=== PATIENT | male | born 1980 | race Caucasian/White ===

== ENCOUNTER → 2023-04-09 11:30 | Outpatient (BNV) | payer OTHER, SELFPAY | PROVIDERS: Visit Provider Psychiatry & Neurology Psychiatry | DX: F33.9 Major depressive disorder, recurrent, unspecified (principal); F45.42 Pain disorder with related psychological factors | CPT/HCPCS: 90792; 99213 ==

== ENCOUNTER 2023-04-27 11:30 | Outpatient (RCR) | payer OTHER, SELFPAY ==
[2023-04-07 11:51] VITALS: BP 119/88; PULSE 87; TEMP 36.8
[2023-04-07 11:53] VITALS: BMI 26.0
--- NOTE | 2023-04-07 13:09 | PC.ADMIT ---
Patient is a 42 year old male who was referred to [facility] by crisis whom he saw at [facility] after he had a discussion with his boss. He stated, Getting to the point at work starting to consider suicide as an option, its in my head. No direct plans. I overdosed on Tylenol and that sticks in my head. Started to put things in order and that's why I went to get a crisis evaluation last week. I talked to my boss who is a friend also and he contacted the clinical care manager of the ED and I spoke to crisis . Patient had been on a medical leave from work for 90 days and recently tried to go back to work and it was not working out. Patient stated the stress of working and being in pain increases the thoughts. Worried about finances if unable to work. He has been looking into long-term disability. Dx with Ankylosing Spondolytis and has arthritis of his back. Sees a Corrective Therapy Aide Teacher. Patient given written and verbal information about [employer] if needed. Patient is alert and oriented x4. Calm and cooperative. Regarding SI patient stated, No plans currently . No intent to kill himself. Patient stated the stress of working and being in pain increases the thoughts. Patient has a history of Tylenol OD in 2016. Reports inpatient is a possibility however does not feel he needs inpatient at this time. Agreed to talk to staff regarding if he needed this level of care. Patient given a copy of his safety plan if needed. He has the crisis number in his phone if needed and on the safety plan. Patient's medications reconciled with patient and patient's pharmacy. he reports taking medications as prescribed. Using Marijuana almost daily smoking 2 joints. Patient has an appointment with his outpatient psychiatric prescriber on 04/08/23 at 0930 thus will not be at [facility].
--- NOTE | 2023-04-08 17:10 | HO.PHP ---
The client's case was reviewed and opened in treatment team.
--- NOTE | 2023-04-09 09:15 | HO.PS.ADMBH ---
[facility] Date of Service: 04/09/23 Chief Complaint: MDD Sources of Information: patient interviewed, chart reviewed and crisis/core team assessment reviewed HPI Narrative: Patient is a 42 year old male with history of depression and anxiety who is referred to [facility] following crisis evaluation at [place]. He has previously attended [facility] here many years ago following a suicide attempt in 2016. 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 He began struggling with depression and anxiety since developing back pain last April 2022. He was eventually diagnosed with Ankylosing Spondylitis some months ago. He reports his mental health has continued to deteriorate through 2022 on account of his chronic pain issues becoming increasingly debilitating, and interfering with his ability to work and maintain employment. His was also recently laid off and is currently unemployed. She is trying to collect unemployment while lookig for another job. Patient says he has gone months this year without pay. He didn't have short-term disability through work so initially he wasn't paid for missing work. He was then on PFML but has now exhausted this and attempted to return to work this week but found this overwhelming and difficult to resume. He and his are starting to struggle financially and patient is worried about eventually getting evicted from their home. He says fortunately his marriage is stable. He reports low mood, low motivation, feels stuck at home not wanting to do anything, anhedonia, irritability, some hopelessness and SI that comes and goes, not constant . Pain makes it worse as well as concerns about the future (financially and medically). Suicide thoughts can get intense, last week was at an 8 or 9 out of 10. Today still thinking about it, but less wanting to be is at a 6 out 10 in intensity. He says anxiety symptoms have been manageable and not any big deal . Sleep and appetite are intact with treatment regime. No evidence of michael or psychosis. Denies any aggressive ideation or HI. Current Medications: Wellbutrin XL 150 mg qAM mirtazapine 45 gm qhs prazosin 2 mg qhs Seroquel 200 mg qhs atorvastatin 10 mg qd baclofen 10 mg TID diclofenac 50 mg TID Humira 40 mg pen IM q 2wks Had been taking Wellbutrin XL at 300 mg for the past couple of weeks but he felt was contributing to worsening SI and contacted his provider this week who returned the dose to 150 mg (as of yesterday). Past Psychiatric History: Previous suicide attempt in 2016 Had been IP for depression, with step down to [facility] when suicide attempt occurred, was medically hospitalized then transferred back to IP s/p suicide attempt, and stepped down to [facility] again Reports a history of AH in the months leading up to attempt and IPLOC in 2016, none since Also reports history of rituals, possible OCD compulsions prior to 2016, resolved Denies any history of SIB or EDB. No hx of aggression. No further psych issues from 2015 until 2022 Current Psych provider Dolores Flores at [facility] Medication trials prior to 2015, mostly SSRIs which he did not tolerate I [facility] Medical History (Updated 04/12/23 @ 06:53 by Brit Pete MD) Arthritis Hyperlipidemia Ankylosing spondylitis Narrative: Reports having a PCP and Call Center Operations Manager (both new since diagnosis) Family History: believes there is mental health issues in family, both sides, no details obtained. No FH suicides Social History: Grew up in [place] with both parents, he is estranged from. 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 Possible alcohol abuse in his 20s w excessive drinking until intoxicated, hx of black-outs Cannabis use: almost daily, hx of on/off use since his teens. No paranoia or associated side effects Hallucinogen, others: none Cocaine use: none Denies other illicit subtance use. No IVDA Nicotine use: 1 ppd x years, interested in getting on patch (has used them in the past) Caffeine: ~ 1 unit/daily, helps with energy Trauma History: Denies Diagnostics Vital Signs (24Hr): BMI result Body Mass Index 26.0 Meds/Allergies Meds Home Medications Medication Instructions Recorded Confirmed Type adalimumab 40 mg/0.4 mL 40 mg subcut Q2W 04/07/23 04/07/23 History subcutaneous pen kit (Humira(CF) Pen) atorvastatin 10 mg tablet 10 mg PO DAILY 04/07/23 04/07/23 History baclofen 10 mg tablet 10 mg PO TID 04/07/23 04/07/23 History diclofenac sodium 50 mg 50 mg PO TID 04/07/23 04/07/23 History tablet,delayed release mirtazapine 45 mg tablet 45 mg PO BEDTIME 04/07/23 04/07/23 History prazosin 1 mg capsule 2 mg PO BEDTIME 04/07/23 04/07/23 History quetiapine 200 mg tablet 200 mg PO BEDTIME 04/07/23 04/07/23 History Wellbutrin XL 1 tab PO QAM 04/09/23 04/09/23 History Allergies Allergies Allergy/AdvReac Type Severity Reaction Status Date / Time Sulfa (Sulfonamide Allergy Unknown UNKNOWN Unverified 02/08/20 16:58 Antibiotics) [SULFA (SULFONAMIDE ANTIBIOTICS)] Mental Status Exam Mental Status Exam Narrative: Alert and oriented, in no acute distress. Kyphosis, sallow complexion. Calm, cooperative but guarded. Intermittent eye contact. Speech normal. No evidence of pressured or delayed speech. Mood anxious. Affect constricted, appropriate but more isrrael in responses as interview continued, slight irritable edge. Denies any SI or HI. No paranoia or psychosis. Cognition intact. Insight fair but adequate. Judgment intact. Assessment & Plan Assessment & Plan (1) Major depressive disorder, recurrent episode: Status: Acute Qualifiers: Major depression episode severity: unspecified Qualified Code(s): F33.9 - Major depressive disorder, recurrent, unspecified Code(s): F33.9 - Major depressive disorder, recurrent, unspecified (2) Pain disorder associated with psychological factors and medical condition: Status: Acute Code(s): F45.42 - Pain disorder with related psychological factors Assessment and Plan: Mirtazapine is at maximum of 45 mg/d and he is unable to tolerate further increase in Wellbutrin due to adverse effects, I suggested augmentation with an SNRI, possibly duloxetine, as an adjunct to target pain as well as depression, anxiety. Patient was reticent, but gave no clear reasons. He was generally reluctant to talk further and apparently was having some trouble attending to the conversation as time went by. I asked if he was having any pain or discomfort from sitting to long, but he dismissed this. He was encouraged to consider this and that we could continue the conversation next week. Plan Admit to [facility] We discussed current medication regime, patient would benefit from increase/augmentation in antidepressant treatment No changes made to his medication regime at this time, per patient preference Patient with passive SI, transient. Denies any urge, intention or plan to harm self. Denies HI. No michael or psychosis. Self care is fair. Does not meet criteria for IPLOC at this time. Continue to monitor Patient educated on: diagnosis, medication risk/benefits and medical condition Informed Consent: understands Reason for continued partial hosp. stay Substantial Risk for: inability to function, rapid decompensation and med/psych decompensation Certification I certify that partial hospital treatment is medically necessary due to the symptoms and problems resulting from the patient's mental illness and the failure to treat the patient at the partial hospital level of care would likely result in the patient requiring inpatient psychiatric care which could not be prevented at a less intensive level of care. Time Spent With Patient Time: Total time managing care of this patient today __60__ minutes.
--- NOTE | 2023-04-12 10:01 | PC.NURSE ---
Eric came to my office this morning and stated he had stomach pains and vomited over the weekend and stated he thinks it was the new medication for his back (Baclofen). He stated he did not take it after that and GI issues have resolved. He is interested in going to a pain clinic and discussed that I call his PCP and set up a referral. He also interested in another medication for his back pain. He stated he did not do much this weekend. He does feel better when he goes for a walk however it is difficult with pain issues. He stated his pain is anywhere from 4-10 (10 being the most pain) depending on the day. He also stated he sleeps in a recliner which helps with the pain. He presented with depressed mood and affect. He reports SI stating, I have fantasies , however denied any plan or intent to kill himself. He is trying to process that he can not work d/t his medical condition. I also spoke to him about support groups at [facility] [place] however did not seem interested at this time. Also discussed talking with his PCP about SSDI. He did state he wants to meet with the PHP provider today. He stated he really did not want to come to the program however his encouraged him to attend today. I spoke to Ame from the office of his PCP Amanda MCMAHON regarding patient wanting me to call them regarding his interest in pain clinic referral, New muscle relaxer medicaton as he had an adverse reaction to Baclofen, and SSDI.They stated they would contact the patient regarding the above.
--- NOTE | 2023-04-12 20:49 | HO.PHPPROGNO ---
Subjective Subjective Date of Service: 04/12/23 Reason For Visit: MDD Interim History: Not great . Eric reports his weekend did not go well. He didnt tolerate baclofen, was taking 3 times a day, started on Wednesday, caused nausea, abdominal pain, after 3 rd dose in evening Wednesday he was vomiting later in the night and into the next day. Vomiting abated by Sat afternoon. Denies any sick contacts. He did not take any further doses after Wednesday night. This is reportedly the 2nd failed muscle relaxer. Had previously been prescribed cyclobenzaprine which was ineffective. He was reminded to call his PCP to check discuss disability ppwrk as well as requesting a referral to pain clinic and now to inform them about not tolerating the baclofen. RN Yaa says she can help him with this. Mood is still low, denies any current SI, mostly having a lot of hopelessness but not wanting to end things . We discussed that there is no room to further optimize either of his current antidepressants mirtazapine is at higher dose range at 45 mg, and pt couldnt tolerate increase of WB XL to 300 mg. He is agreeable to starting duloxetine, will titrate slowly, starting at 20 mg qd and incr to BID over the week. Medication Compliance: Yes Side effects from medications: Yes (as noted above) Attending Groups: Yes Review of Systems Acute medical concerns: Yes baclofen poor tolerated, contacted PCP to make appointment for follow up Mental Status Exam Mental Status Exam Narrative: Alert and oriented, in no acute distress. Kyphosis, sallow complexion. Restless with occasional shifting in chair due to discomfort. Cooperative but guarded. Intermittent eye contact. Speech normal. No evidence of pressured or delayed speech. Mood anxious. Affect constricted, appropriate but more isrrael in responses as interview continued, slight irritable edge. Thought process linear, coherent. Thought content relevant to stressors, anhedonia, and hopelessness, denies any SI or HI. No paranoia or psychosis. Cognition intact. Insight fair but adequate. Judgment intact. Patient Behavior: Self Manipulative Diagnostics Vital Signs (24Hr): BMI result Body Mass Index 26.0 Assessment & Plan Assessment & Plan (1) Major depressive disorder, recurrent episode: Qualifiers: Major depression episode severity: unspecified Qualified Code(s): F33.9 - Major depressive disorder, recurrent, unspecified Status: Acute Code(s): F33.9 - Major depressive disorder, recurrent, unspecified (2) Pain disorder associated with psychological factors and medical condition: Status: Acute Code(s): F45.42 - Pain disorder with related psychological factors Plan start duloxetine 20 mg qd for a few days, will increase to BID as tolerated continue other medications pending PCP appointment to f/u re: muscle relaxer. referral pain clinic plans to start SSDI paperwork online continue PHP Patient educated on: diagnosis and medication risk/benefits Informed Consent: understands Reason for contiued partial hosp. stay Substantial Risk for: inability to function, rapid decompensation and med/psych decompensation Certification I certify that partial hospital treatment is medically necessary due to the symptoms and problems resulting from the patient's mental illness and the failure to treat the patient at the partial hospital level of care would likely result in the patient requiring inpatient psychiatric care which could not be prevented at a less intensive level of care. Total time managing care of this patient today __30__ minutes. Discharge Plan Discharge Attending provider: Brit Pete Medications: New nicotine 21 mg/24 hr patch 24 hour 1 patch transdermal DAILY Qty: 14 0RF Rx Instructions: Remove patch in the evening nicotine 14 mg/24 hr patch 24 hour 1 patch transdermal DAILY Qty: 14 0RF Rx Instructions: once completed with 14 days of 21 mg patches; remove patch in the evening nicotine 7 mg/24 hr patch 24 hour 1 patch transdermal Q24H Qty: 14 0RF Rx Instructions: once completed with 14 days of 14 mg patches; remove patch in the evening duloxetine 20 mg capsule,delayed release(DR/EC) 20 mg PO BID Qty: 20 0RF Rx Instructions: take one capsule po daily for 2-4 days, then increase to one capsule po twice daily Continued atorvastatin 10 mg tablet 10 mg PO DAILY prazosin 1 mg capsule 2 mg PO BEDTIME quetiapine 200 mg tablet 200 mg PO BEDTIME baclofen 10 mg tablet 10 mg PO TID mirtazapine 45 mg tablet 45 mg PO BEDTIME diclofenac sodium 50 mg tablet,delayed release (DR/EC) 50 mg PO TID Humira(CF) Pen 40 mg/0.4 mL pen injector kit 40 mg subcut Q2W Wellbutrin XL 150 mg tablet 1 tab PO QAM Discontinued bupropion HCl 300 mg tablet extended release 24 hr 300 mg PO DAILY Patient Comments: Patient reports he has an appointment with his prescriber 04/08/23 at 0930 to review potential side effects. Patient questioning if contributing to suicidal thoughts?. bupropion HCl tablet 150 tab PO QAM Telehealth Telehealth Location of provider rendering services: other (private office) Location of patient: other ([facility] Patient Identification confirmed using: Name, : Yes Telehealth method: video Patient verbally consented to treatment: Yes Minutes spent on Phone/Video with Pt.: 30
--- NOTE | 2023-04-19 20:34 | P.PNPSP_ITS ---
Subjective Subjective Date of Service: 04/19/23 Reason For Visit: MDD Interim History: Patient seen for follow-up today. No acute issues or concerns. Uneventful weekend. He and went hiking, was cold but enjoyable. Walking makes him tired, so he's feeling it now . Started on new medication (duloxetine) last Wed or , had one day of N/V/D which resolved over the passing 24 hrs. No further side effects, has been med compliant. Sleep is variable so not getting as much restorative sleep as he would like. He has PCP appointment next WednesdayApr 26 and will be discussing Disability ppwk and referral for pain clinic. Mood is a little better, says he's not having as many issues today and has been sticking it out in groups and trying to participate more. Denies any thoughts of giving up on life. Medication Compliance: Yes Side effects from medications: No Attending Groups: Yes Review of Systems Acute medical concerns: No Mental Status Exam Mental Status Exam Narrative: Alert and oriented, in no acute distress. Cooperative less guarded. Improved eye contact. Speech normal. No evidence of pressured or delayed speech. Mood anxious. Affect constricted, appropriate but more isrrael in responses as interview continued, slight irritable edge. Thought process linear, coherent. Thought content relevant to stressors, denies any SI or HI. No paranoia or psychosis. Cognition intact. Insight fair but adequate. Judgment intact. Diagnostics Vital Signs (24Hr): BMI result Body Mass Index 26.0 Assessment & Plan Assessment & Plan (1) Major depressive disorder, recurrent episode: Qualifiers: Major depression episode severity: unspecified Qualified Code(s): F33.9 - Major depressive disorder, recurrent, unspecified Status: Acute Code(s): F33.9 - Major depressive disorder, recurrent, unspecified (2) Pain disorder associated with psychological factors and medical condition: Status: Acute Code(s): F45.42 - Pain disorder with related psychological factors Plan continue in PHP increase duloxetine 20 mg to BID continue to monitor Patient educated on: diagnosis and medication risk/benefits Informed Consent: understands Reason for contiued partial hosp. stay Substantial Risk for: inability to function, rapid decompensation and med/psych decompensation Certification I certify that partial hospital treatment is medically necessary due to the symptoms and problems resulting from the patient's mental illness and the failure to treat the patient at the partial hospital level of care would likely result in the patient requiring inpatient psychiatric care which could not be prevented at a less intensive level of care. Total time managing care of this patient today _30___ minutes. Discharge Plan Discharge Attending provider: Brit Pete Medications: New nicotine 21 mg/24 hr patch 24 hour 1 patch transdermal DAILY Qty: 14 0RF Rx Instructions: Remove patch in the evening nicotine 14 mg/24 hr patch 24 hour 1 patch transdermal DAILY Qty: 14 0RF Rx Instructions: once completed with 14 days of 21 mg patches; remove patch in the evening nicotine 7 mg/24 hr patch 24 hour 1 patch transdermal Q24H Qty: 14 0RF Rx Instructions: once completed with 14 days of 14 mg patches; remove patch in the evening duloxetine 20 mg capsule,delayed release(DR/EC) 20 mg PO BID Qty: 20 0RF Rx Instructions: take one capsule po daily for 2-4 days, then increase to one capsule po twice daily Continued atorvastatin 10 mg tablet 10 mg PO DAILY prazosin 1 mg capsule 2 mg PO BEDTIME quetiapine 200 mg tablet 200 mg PO BEDTIME baclofen 10 mg tablet 10 mg PO TID mirtazapine 45 mg tablet 45 mg PO BEDTIME diclofenac sodium 50 mg tablet,delayed release (DR/EC) 50 mg PO TID Humira(CF) Pen 40 mg/0.4 mL pen injector kit 40 mg subcut Q2W Wellbutrin XL 150 mg tablet 1 tab PO QAM Discontinued bupropion HCl 300 mg tablet extended release 24 hr 300 mg PO DAILY Patient Comments: Patient reports he has an appointment with his prescriber 04/08/23 at 0930 to review potential side effects. Patient questioning if contributing to suicidal thoughts?. bupropion HCl tablet 150 tab PO QAM Telehealth Telehealth Location of provider rendering services: other (private office) Location of patient: other ([facility]) Patient Identification confirmed using: Name, : Yes Telehealth method: video Patient verbally consented to treatment: Yes
--- NOTE | 2023-04-20 17:26 | HO.PHP ---
Cloth Desizing Range Operator Chief spoke with [facility] to inquire of therapy referral for pt at the [facility] location, per pt request (pt resides in [place] and provider located in that office). [facility] staff member stated pt needs to call or go to the program in person and enroll for services himself, states they are filling appt on a first come first served basis. Cloth Desizing Range Operator Chief called pt to inform him of this and to encourage pt go in person after programming today or tomorrow if possible. Cloth Desizing Range Operator Chief left a voicemail.
[2023-04-21 10:39] VITALS: BP 128/78; PULSE 68; TEMP 36.5
[2023-04-21 10:42] VITALS: BMI 31.0
--- NOTE | 2023-04-22 08:36 | PC.NURSE ---
Eric has a doctors appointment on Wednesday to go over disability paperwork regarding work and SSDI. Also to discuss referral to pain clinic. Eric called out of the program today as he c/o diarrhea with second dose of Duloxetine, will f/u with Dr Pete.
--- NOTE | 2023-04-23 21:24 | P.PNPSP_ITS ---
Subjective Subjective Date of Service: 04/23/23 Reason For Visit: MDD Interim History: Patient seen for follow-up. No acute issues or concerns. Patient is day 2 on BID dosing of duloxetine. He reports experiencing stomach cramps today, which is an improvement from yesterday when he had stomach cramping and diarrhea, and was unable to come to the program. Last week he had N/V/D when starting on duloxetine, which lasted 2-3 days and then resolved, until bumping up the dose the other day. He feels it is lightening up and is optimistic these symtoms will resolve by tomorrow. He reports his mood is okay. He reports mood stability at a 6 out of 10, which is an improvement since being at a 2 out of 10 at the start of the program. He denies any thoughts of giving up on life in the past few days, and feels some modest improvements. No helplessness, hopelessness or SI. SLeep and appetite are intact. He denies any alcohol use, he uses weed occasionally for anxiety and pain. He continues to work out some problems in groups, reportedly has been helpful vocalizing his concerns/distress/feelings rather than internalizing his problems. Medication Compliance: Yes Side effects from medications: Yes (as noted above) Attending Groups: Yes Review of Systems Acute medical concerns: No Mental Status Exam Mental Status Exam Narrative: Patient Appearance: Appropriate Level of Consciousness: Awake and Alert Patient Behavior: Appropriate and Cooperative Mood Description: Depressed Affect Description: Calm Ability to Follow Directions: Excellent Speech Pattern: Appropriate and Spontaneous Speech Memory Description: Remote Impaired and Normal for Patient Hallucinations: None Delusions: Not Present Thought Process: Linear Thought Content: positive for Linear and positive for Poverty of Content Depressive Symptoms: Increased Anxiety, Diff. Making Decisions, Muscle Tension, Difficulty Sleeping, Loss of Int. in Activity, Increased Fatigue, Low Self Esteem and Difficulty Concentrating Judgement: Good Judgement and Insight: fair/adequate Diagnostics Vital Signs (24Hr): BMI result Body Mass Index 31.0 Assessment & Plan Assessment & Plan (1) Major depressive disorder, recurrent episode: Qualifiers: Major depression episode severity: unspecified Qualified Code(s): F33.9 - Major depressive disorder, recurrent, unspecified Status: Acute Code(s): F33.9 - Major depressive disorder, recurrent, unspecified (2) Pain disorder associated with psychological factors and medical condition: Status: Acute Code(s): F45.42 - Pain disorder with related psychological factors Plan For now will continue with duloxetine 20 mg BID, will plan to continue gradual titration and allow time for patient to adjust to medication given propensity to cause GI problems continue in [facility] Patient educated on: diagnosis and medication risk/benefits Informed Consent: understands Reason for contiued partial hosp. stay Substantial Risk for: med/psych decompensation Certification I certify that partial hospital treatment is medically necessary due to the symptoms and problems resulting from the patient's mental illness and the fa ilure to treat the patient at the partial hospital level of care would likely result in the patient requiring inpatient psychiatric care which could not be prevented at a less intensive level of care. Total time managing care of this patient today __30__ minutes. Discharge Plan Discharge Attending provider: Brit Pete Medications: New nicotine 21 mg/24 hr patch 24 hour 1 patch transdermal DAILY Qty: 14 0RF Rx Instructions: Remove patch in the evening nicotine 14 mg/24 hr patch 24 hour 1 patch transdermal DAILY Qty: 14 0RF Rx Instructions: once completed with 14 days of 21 mg patches; remove patch in the evening nicotine 7 mg/24 hr patch 24 hour 1 patch transdermal Q24H Qty: 14 0RF Rx Instructions: once completed with 14 days of 14 mg patches; remove patch in the evening Continued atorvastatin 10 mg tablet 10 mg PO DAILY prazosin 1 mg capsule 2 mg PO BEDTIME quetiapine 200 mg tablet 200 mg PO BEDTIME baclofen 10 mg tablet 10 mg PO TID mirtazapine 45 mg tablet 45 mg PO BEDTIME diclofenac sodium 50 mg tablet,delayed release (DR/EC) 50 mg PO TID Humira(CF) Pen 40 mg/0.4 mL pen injector kit 40 mg subcut Q2W Wellbutrin XL 150 mg tablet 1 tab PO QAM duloxetine 20 mg capsule,delayed release(DR/EC) 20 mg PO BID Qty: 30 0RF Rx Instructions: take one capsule po daily for 2-4 days, then increase to one capsule po twice daily Discontinued bupropion HCl 300 mg tablet extended release 24 hr 300 mg PO DAILY Patient Comments: Patient reports he has an appointment with his prescriber 04/08/23 at 0930 to review potential side effects. Patient questioning if contributing to suicidal thoughts?. bupropion HCl tablet 150 tab PO QAM Stand Alone Forms: Patient Portal Discharge page
--- NOTE | 2023-04-27 11:52 | P.PNPSP_ITS ---
Subjective Subjective Date of Service: 04/27/23 Reason For Visit: MDD Interim History: Patient seen for follow-up today. He will be discharged as per dispo plan. No acute issues or concerns. He reports doing better. Says his mood is still with some depression, but this has improved over his stay. He is tolerating the duloxetine which is currently at 20 mg BID. He had some GI complaints with starting the medication (stomach cramps/N/V/D) and milder symptoms (cramping/D) when titrated to BID. He had had a history of sensitivity to ADT this we planned for a long titration. Vira is aware the goal is to get to 30 mg BID and then stay at that dose for 4-6 weeks, at which time his provider and he can decide if further titratiion is warranted. CUrrently he denies any thougths of giving up on life. Last passive SI was over a week ago. He is feeling more positive and reports th at his financial siutation is not as desperate as it was before. His has since started a new job. He had an appointment with his PCP last week and has started the long-term disability paperwork. He forgot to request a referral to a pain clinic, as we had recommended and says he will ask about that next time, or sooner if pain issues worsen. He reports having an upcoming psych appointment with Dolores Kaur NP on May 06. Is waiting to get a therapist soon. Sleep and appetite intact. Energy still kind of low, limited by pain but no changes and now worse. Medication compliant. Denies anyAE. Medication Compliance: Yes Side effects from medications: No Attending Groups: Yes Review of Systems Acute medical concerns: No Mental Status Exam Mental Status Exam Narrative: Patient Appearance: Appropriate Level of Consciousness: Awake and Alert Patient Behavior: Appropriate and Cooperative Mood Description: less Depressed Affect Description: Calm, subdued Ability to Follow Directions: Excellent Speech Pattern: Appropriate and Spontaneous Speech Memory Description: Remote Impaired and Normal for Patient Hallucinations: None Delusions: Not Present Thought Process: Linear, coherent Thought Content: future oriented, more hopeful, No SI or hI on inquiry Depressive Symptoms: Increased Anxiety, Diff. Making Decisions, Muscle Tension, Difficulty Sleeping, Loss of Int. in Activity, Increased Fatigue, Low Self Esteem and Difficulty Concentrating Judgment and Insight: good/fair Diagnostics Vital Signs (24Hr): BMI result Body Mass Index 31.0 Assessment & Plan Assessment & Plan (1) Major depressive disorder, recurrent episode: Qualifiers: Major depression episode severity: unspecified Qualified Code(s): F33.9 - Major depressive disorder, recurrent, unspecified Status: Acute Code(s): F33.9 - Major depressive disorder, recurrent, unspecified (2) Pain disorder associated with psychological factors and medical condition: Status: Acute Code(s): F45.42 - Pain disorder with related psychological factors Plan Discharge from [facility] continue regular medications will defer ongoing medication management to outpatient provider patient aware he will be due for further titration of duloxetine to 30 mg BID, ideally in the next week Patient educated on: diagnosis and medication risk/benefits Informed Consent: understands Reason for contiued partial hosp. stay Substantial Risk for: stable for discharge Certification I certify that partial hospital treatment is medically necessary due to the symptoms and problems resulting from the patient's mental illness and the failure to treat the patient at the partial hospital level of care would likely result in the patient requiring inpatient psychiatric care which could not be prevented at a less intensive level of care. Total time managing care of this patient today ___30_ minutes. Discharge Plan Discharge Attending provider: Brit Pete Medications: New nicotine 21 mg/24 hr patch 24 hour 1 patch transdermal DAILY Qty: 14 0RF Rx Instructions: Remove patch in the evening nicotine 14 mg/24 hr patch 24 hour 1 patch transdermal DAILY Qty: 14 0RF Rx Instructions: once completed with 14 days of 21 mg patches; remove patch in the evening nicotine 7 mg/24 hr patch 24 hour 1 patch transdermal Q24H Qty: 14 0RF Rx Instructions: once completed with 14 days of 14 mg patches; remove patch in the evening Continued atorvastatin 10 mg tablet 10 mg PO DAILY prazosin 1 mg capsule 2 mg PO BEDTIME quetiapine 200 mg tablet 200 mg PO BEDTIME baclofen 10 mg tablet 10 mg PO TID mirtazapine 45 mg tablet 45 mg PO BEDTIME diclofenac sodium 50 mg tablet,delayed release (DR/EC) 50 mg PO TID Humira(CF) Pen 40 mg/0.4 mL pen injector kit 40 mg subcut Q2W Wellbutrin XL 150 mg tablet 1 tab PO QAM duloxetine 20 mg capsule,delayed release(DR/EC) 20 mg PO BID 30 Days Qty: 60 0RF Rx Instructions: take one capsule po daily for 2-4 days, then increase to one capsule po twice daily Discontinued bupropion HCl 300 mg tablet extended release 24 hr 300 mg PO DAILY Patient Comments: Patient reports he has an appointment with his prescriber 04/08/23 at 0930 to review potential side effects. Patient questioning if contributing to suicidal thoughts?. bupropion HCl tablet 150 tab PO QAM Stand Alone Forms: Patient Portal Discharge page Patient Education: Depression (DC)
--- NOTE | 2023-04-27 19:42 | HO.PHPPROGNO ---
Subjective Subjective Date of Service: 04/27/23 Reason For Visit: MDD Diagnostics Vital Signs (24Hr): BMI result Body Mass Index 31.0 Assessment & Plan Certification I certify that partial hospital treatment is medically necessary due to the symptoms and problems resulting from the patient's mental illness and the failure to treat the patient at the partial hospital level of care would likely result in the patient requiring inpatient psychiatric care which could not be prevented at a less intensive level of care. Total time managing care of this patient today ____ minutes. Discharge Plan Discharge Attending provider: Brit Pete Medications: New nicotine 21 mg/24 hr patch 24 hour 1 patch transdermal DAILY Qty: 14 0RF Rx Instructions: Remove patch in the evening nicotine 14 mg/24 hr patch 24 hour 1 patch transdermal DAILY Qty: 14 0RF Rx Instructions: once completed with 14 days of 21 mg patches; remove patch in the evening nicotine 7 mg/24 hr patch 24 hour 1 patch transdermal Q24H Qty: 14 0RF Rx Instructions: once completed with 14 days of 14 mg patches; remove patch in the evening Continued atorvastatin 10 mg tablet 10 mg PO DAILY prazosin 1 mg capsule 2 mg PO BEDTIME quetiapine 200 mg tablet 200 mg PO BEDTIME baclofen 10 mg tablet 10 mg PO TID mirtazapine 45 mg tablet 45 mg PO BEDTIME diclofenac sodium 50 mg tablet,delayed release (DR/EC) 50 mg PO TID Humira(CF) Pen 40 mg/0.4 mL pen injector kit 40 mg subcut Q2W Wellbutrin XL 150 mg tablet 1 tab PO QAM duloxetine 20 mg capsule,delayed release(DR/EC) 20 mg PO BID 30 Days Qty: 60 0RF Rx Instructions: take one capsule po daily for 2-4 days, then increase to one capsule po twice daily Discontinued bupropion HCl 300 mg tablet extended release 24 hr 300 mg PO DAILY Patient Comments: Patient reports he has an appointment with his prescriber 04/08/23 at 0930 to review potential side effects. Patient questioning if contributing to suicidal thoughts?. bupropion HCl tablet 150 tab PO QAM Stand Alone Forms: Patient Portal Discharge page Patient Education: Depression (DC)
== END 2023-04-27 23:59 | disposition home or self-care (01) ==
LOC: HO.PHPA 11:30
PROVIDERS: Visit Provider Psychiatry & Neurology Psychiatry
DX: F33.9 Major depressive disorder, recurrent, unspecified (principal); F45.42 Pain disorder with related psychological factors; Z79.899 Other long term (current) drug therapy
CPT/HCPCS: 90791; 90853

== ENCOUNTER 2025-01-03 14:15 | Outpatient (RCR) | payer OTHER, SELFPAY ==
[2024-12-28 10:43] VITALS: BP 102/68; PULSE 72; TEMP 36.8
--- NOTE | 2024-12-28 11:14 | PC.ADMIT ---
Patient is a 44 year old male who was referred to [facility] by [facility] where he was admitted from 12/13-12/18/24 after self presenting to the ED with his d/t sxs of depression with SI with a plan to overdose on Tylenol secondary to life stresses and chronic pain x 3 years. Patient has a dx of Ankylosing Spondylitis, psoriatic arthritis. Patient has a history of multiple hospitalizations. Patient reports since the last time he was at [facility] he lost his job, [employer], his lost her job- currently is working), lost his apartment, and he lost his insurance and all his providers as a result. Patient reports that he has insurance currently and is living with in his parents in law apartment. Patient stated his and parents are supportive. Patient reports a history of overdosing on Tylenol 10 years ago. He reports he was in ICU for a week prior to going inpatient LOC. Patient is currently alert and oriented x4. He is calm and cooperative. He presented with depressed mood and anxious affect. Patient reports passive SI having thoughts that he would be better off. He stated he always has thoughts to overdose on Tylenol since he overdosed 10 years ago on Tylenol however her reports the plan is not active and does not have any intent to kill himself. Patient stated, 'Ultimately I don't want that to be the answer. Patient was given a copy of his safety plan if needed. Medications updated with patient and patient's d/c medication list from [facility]. Patient stated [facility] gave him a 7 day supply of his medications when discharged and ran out of medications 2 days ago. He stated he had a intake appointment for outpatient therapy and psychiatry at [facility] in [place] on Wednesday12/24/24 and when he went to the appointment they were closed, no one answered the door and the door was locked. Patient stated he needs a therapist and psychiatrist.
[2024-12-28 12:50] VITALS: BMI 25.0
--- NOTE | 2024-12-28 17:21 | HO.PHP ---
Clients case was open and reviewed in teams.
--- NOTE | 2025-01-01 22:39 | HO.PHPPROGNO ---
Subjective Subjective Date of Service: 01/01/25 Reason For Visit: MDD Interim History: Patient seen for follow-up. Ambulating now with walker. Has experienced some relief from medication, affords him more ability to engage with others and work on tasks. However once wears off, especially by the afternoon, pain and anxiety return and is debilitating . He denies any sedation or side effects from medication. He is open to increasing dose to help with pain, anxiety. Mood still depressed, denies any SI. Feeling transient demoralized and helpess. Medication Compliance: Yes Side effects from medications: No Attending Groups: Yes Review of Systems Acute medical concerns: No Mental Status Exam Mental Status Exam Narrative: Patient Appearance: Appropriate Level of Consciousness: Awake and Alert Patient Behavior: Appropriate and Cooperative Mood Description: Depressed Affect Description: Calm, subdued Ability to Follow Directions: Excellent Speech Pattern: Appropriate and Spontaneous Speech Memory Description: Remote Impaired and Normal for Patient Hallucinations: None Delusions: Not Present Thought Process: Linear, coherent Thought Content: future oriented, more hopeful, No SI or hI on inquiry Depressive Symptoms: Increased Anxiety, Diff. Making Decisions, Muscle Tension, Difficulty Sleeping, Loss of Int. in Activity, Increased Fatigue, Low Self Esteem and Difficulty Concentrating Judgment and Insight: good/fair Diagnostics Vital Signs (24Hr): BMI result Body Mass Index 25.0 Assessment & Plan Assessment & Plan (1) Major depressive disorder, recurrent episode: Qualifiers: Major depression episode severity: unspecified Qualified Code(s): F33.9 - Major depressive disorder, recurrent, unspecified Status: Acute Code(s): F33.9 - Major depressive disorder, recurrent, unspecified (2) Pain disorder associated with psychological factors and medical condition: Status: Acute Code(s): F45.42 - Pain disorder with related psychological factors Plan continue PHP increase gabapentin to 300 mg QID increase baclofen to 10 mg QID continue hydroxyzine 50 mg BID PRN anxiety, sleep continue clonazepam 0.5 mg BID (AM/HS) continue mirtazapine 45 mg qhs continue prazosin 1 mg qhs hold off trazodone (since gbt at HS now) Patient educated on: diagnosis, medication risk/benefits and medical condition Informed Consent: understands Reason for contiued partial hosp. stay Substantial Risk for: inability to function and med/psych decompensation Certification I certify that partial hospital treatment is medically necessary due to the symptoms and problems resulting from the patient's mental illness and the failure to treat the patient at the partial hospital level of care would likely result in the patient requiring inpatient psychiatric care which could not be prevented at a less intensive level of care. Total time managing care of this patient today __30__ minutes. Discharge Plan Discharge Attending provider: Brit Pete Medications: New baclofen 10 mg tablet 10 mg PO BID Qty: 30 0RF gabapentin 300 mg capsule 300 mg PO TID Qty: 30 0RF clonazepam [Klonopin] 0.5 mg tablet 0.5 mg PO BID Qty: 20 0RF baclofen 10 mg tablet 10 mg PO QID Qty: 60 0RF Continued trazodone 50 mg tablet 50 mg PO BEDTIME PRN (Reason: insomnia) Qty: 30 0RF prazosin 1 mg capsule 1 mg PO BEDTIME Qty: 30 0RF hydroxyzine pamoate 50 mg capsule 50 mg PO TID PRN (Reason: Anxiety) Qty: 30 0RF Rx Instructions: TAKE 1 CAPSULE BY MOUTH 3 TIMES DAILY. mirtazapine 45 mg tablet 45 mg PO BEDTIME Qty: 30 0RF Rx Instructions: TAKE 1 TABLET BY MOUTH EVERY DAY AT BEDTIME No Action lidocaine 4 % Adhesive Patch,Medicated 1 patch TOPICAL DAILY PRN (Reason: Pain) Stand Alone Forms: Patient Portal Discharge page Print Language: Arabic
--- NOTE | 2025-01-02 10:51 | HO.PHP ---
[facility] staff member reached out to [facility] on multiple occasions to make a referral but there phone lines were having difficulties and kept disconnecting. [facility] staff member spoke with someone through the [facility], [facility], who expressed that Eric can come in for a walk in appointment from 8 AM to 8 PM Wednesday Through Wednesday and 9 to 5 PM Wednesday and Wednesday. They noted that Eric would have to meet with a therapist there prior to being assigned a med provider but they do prioritize hospital discharges. Eric was provided with the walk in information and encouraged to call ahead of time to see if the time he would like to go is available. The number provided is .
--- NOTE | 2025-01-02 15:07 | HO.PHP ---
[facility] staff member met with Eric due to Marah stating he was crying in her group (Group 2). PHP staff member explored with Eric what was occurring. Eric expressed that he is feeling defeated and hopeless. Eric shared how he often will think about what his life has to offer and it is challenging for him to see anything positive due to the pain and his mental health. PHP staff member encouraged Eric when he begins thinking into the future and it creates distress to pull himself back into the present time and work on what is in his control. Eric appeared receptive. Eric also shared that he feels he does not contribute anything in his relationship. PHP staff member stated that he feels that way and asked if he has explored this with his . Eric says he has and she is able to state a list of how he contributes he just doesn't believe it. PHP staff member and Eric engaged in conversation around how he has engaged in negative self-talk for so long that it is impacting how he views himself now. PHP staff member encouraged him to implement affirmation activities to improve self-esteem and also to reframe his way of thinking. Eric was in agreement. Eric was able to regulate and return to the group setting. Eric also reported no safety concerns.
--- NOTE | 2025-01-03 10:15 | HO.PHP ---
01/03/2025 This comic book writer was asked to meet with the patient,Eric, this morning because he was stating that he was struggling. This comic book writer met with the patient in group room C,he reported to this comic book writer that he did not feel well physically because he was sick last night at home and did not sleep. The patient stated he thinks this may be from a recent medication change. This comic book writer asked the patient if he was feeling safe,he stated that he did and he denied suicidal ideation,plan or intent. This comic book writer was in communication with the [facility] team and consulted with the [facility] RN who contacted the patient. The nurse,Marah,reported that the patient's symptoms may be due to the increase in medication, she stated she is following up with the [facility] psychiatrist to address this issue. Mirian Shi,[facility] Behavioral Health Specialist III
--- NOTE | 2025-01-03 11:53 | PC.NURSE ---
Eric Carpio left program early as he stated he was tired and hardly slept last night. He stated around 4:00 pm yesterday he started feeling dizzy and was dry heaving. Reports this lasted for 3 hours. He stated Gabapentin was increased and Baclofen. He took a Gabapentin at lunch time yesterday. Question If it was the Gabapentin or other medication? Reviewed this with Dr. Pete. Dr. Pete stated she will call Eric to follow up. Eric denied any safety issues, denied any plans or intent to harm/kill himself.
--- NOTE | 2025-01-04 13:56 | HO.PHPPROGNO ---
Subjective Subjective Date of Service: 01/04/25 Reason For Visit: MDD Interim History: Patient seen for follow-up, he is requesting to be discharged today AMA. He reports feeling he is not making any prpogress and that he is also spending a good amount of the day in pain from sitting and this also makes it difficult to get anything out of groups. Efforts to problem-solve or ameliorate the situation were thwarted. Reports no acute issues or concerns. Medication compliant, medications well-tolerated. Denies any adverse effects.? Mood is depressed.?Endorses passive SI and feeling demoralized, helpless, transient hopelessness. Denies thoughts of harming self or others at this time. Denies any aggressive ideation or HI. Denies any paranoia or AH or VH. He reports having had an adverse reaction/N/V yesterday which he attributed to increasing the dose of Baclofen from BID to TID yesterday. He is willing to return the dose to BID. WIll conitnue with all other regular mediciations. Medication Compliance: Yes Side effects from medications: Yes Attending Groups: Intermittent Mental Status Exam Mental Status Exam Narrative: Patient Appearance: Appropriate Level of Consciousness: Awake and Alert Patient Behavior: Appropriate and Cooperative Mood Description: Depressed Affect Description: Calm, subdued Ability to Follow Directions: Excellent Speech Pattern: Appropriate and Spontaneous Speech Memory Description: Remote Impaired and Normal for Patient Hallucinations: None Delusions: Not Present Thought Process: Linear, coherent Thought Content: future oriented, more hopeful, No SI or hI on inquiry Depressive Symptoms: Increased Anxiety, Diff. Making Decisions, Muscle Tension, Difficulty Sleeping, Loss of Int. in Activity, Increased Fatigue, Low Self Esteem and Difficulty Concentrating Judgment and Insight: good/fair Diagnostics Vital Signs (24Hr): BMI result Body Mass Index 25.0 Assessment & Plan Assessment & Plan (1) Major depressive disorder, recurrent episode: Qualifiers: Major depression episode severity: unspecified Qualified Code(s): F33.9 - Major depressive disorder, recurrent, unspecified Status: Acute Code(s): F33.9 - Major depressive disorder, recurrent, unspecified (2) Pain disorder associated with psychological factors and medical condition: Status: Acute Code(s): F45.42 - Pain disorder with related psychological factors Plan Discharge from [facility] AMA Continue all regular medications? Refills sent to pharmacy Will defer further medication management to outpatient provider *patient not agreeable to being evaluated in the ED, he is not at imminent risk of harm to self or others and does not warrant IPLOC at this time *Safety plan was reviewed *Discharge diagnoses, treatment course, discharge plan have been reviewed with patient (including medication regime, medication management, potential side effects) as well as treatment rationale were also revisited *Discharge paperwork signed and given to patient, copy sent for scanning to chart Patient educated on: diagnosis and medication risk/benefits Informed Consent: understands Reason for contiued partial hosp. stay Substantial Risk for: med/psych decompensation Certification I certify that partial hospital treatment is medically necessary due to the symptoms and problems resulting from the patient's mental illness and the failure to treat the patient at the partial hospital level of care would likely result in the patient requiring inpatient psychiatric care which could not be prevented at a less intensive level of care. Total time managing care of this patient today __40__ minutes. Discharge Plan Discharge Attending provider: Brit Pete Medications: New clonazepam [Klonopin] 0.5 mg tablet 0.5 mg PO BID Qty: 20 0RF Continued trazodone 50 mg tablet 50 mg PO BEDTIME PRN (Reason: insomnia) Qty: 30 0RF prazosin 1 mg capsule 1 mg PO BEDTIME Qty: 30 0RF hydroxyzine pamoate 50 mg capsule 50 mg PO TID PRN (Reason: Anxiety) Qty: 30 0RF Rx Instructions: TAKE 1 CAPSULE BY MOUTH 3 TIMES DAILY. mirtazapine 45 mg tablet 45 mg PO BEDTIME Qty: 30 0RF Rx Instructions: TAKE 1 TABLET BY MOUTH EVERY DAY AT BEDTIME Changed baclofen 10 mg tablet 10 mg PO BID Qty: 60 0RF gabapentin 300 mg capsule 300 mg PO QID Qty: 30 0RF Rx Instructions: take one capsule po qam, take one capsule po daily in afternoon, take 2 capsules po daily at bedtime No Action lidocaine 4 % Adhesive Patch,Medicated 1 patch TOPICAL DAILY PRN (Reason: Pain) Stand Alone Forms: Patient Portal Discharge page Patient Education: Depression (DC), Anxiety (ED) Print Language: Sammarinese
== END 2025-01-03 23:59 | disposition home or self-care (01) ==
LOC: HO.PHPA 14:15
PROVIDERS: Visit Provider Psychiatry & Neurology Psychiatry
DX: F33.9 Major depressive disorder, recurrent, unspecified (principal); F45.42 Pain disorder with related psychological factors; Z79.899 Other long term (current) drug therapy
CPT/HCPCS: 90853

== ENCOUNTER → 2025-01-03 14:15 | Outpatient (BNV) | payer OTHER, SELFPAY | PROVIDERS: Visit Provider Psychiatry & Neurology Psychiatry | DX: F33.9 Major depressive disorder, recurrent, unspecified (principal); F45.42 Pain disorder with related psychological factors | CPT/HCPCS: 99214 ==